=== PATIENT | female | born 1975 | race Caucasian/White ===

== ENCOUNTER → 2023-10-21 13:01 | Outpatient (REF) | payer BC, SELFPAY | LOC: WDC 13:01 | PROVIDERS: ATTENDING PHYSICIAN Nurse Practitioner Family; FAMILY PHYSICIAN Physician Assistant Medical | DX: Z12.31 Encounter for screening mammogram for malignant neoplasm of breast (principal) | CPT/HCPCS: 77063; 77067 ==

== ENCOUNTER → 2023-11-04 08:26 | Outpatient (REF) | payer BC, SELFPAY ==
[2023-11-04 08:58] LABS: % Basophils 0.6 % (0-2); % Eosinophils 3.6 % (0-6); % Immature Granulocytes 0.6 % (0-0.5); % Lymphocytes 33.1 % (20.5-51.1); % Neutrophils 56.1 % (42.2-75.2); Absolute Basophils 0.1 10^3/uL (0-0.2); Absolute Eosinophils 0.3 10^3/uL (0-0.7); Absolute Immature Granulocytes 0.1 10^3/uL (0-0.05); Absolute Lymphocytes 2.6 10^3/uL (1.2-3.4); Absolute Monocytes 0.5 10^3/uL (0.1-0.6); Absolute Neutrophils 4.4 10^3/uL (1.4-6.5); Hematocrit 37.3 % (37.0-47.0); Hemoglobin 12.8 g/dL (12.0-16.0); Mean Corp Hgb Conc. 34.3 g/dL (33.0-37.0); Mean Corpuscular Hgb 31.2 pg (27.0-31.0); Mean Platelet Volume 9.1 fL (7.4-10.4); Nucleated Red Blood Cells % 0 %; Platelet Count 251 10^3/uL (130-400); Red Cell Dist. Width 12.1 % (11.5-14.5); White Blood Cell Count 7.8 10^3/uL (4.8-10.8)
[2023-11-04 09:19] LABS: ALT (SGPT) 18 U/L (0-35); AST (SGOT) 22 U/L (14-36); Albumin 4.2 g/dl (3.5-5.0); Alkaline Phosphatase 53 U/L (38-126); Blood Urea Nitrogen 13 mg/dl (7-17); Calcium 8.9 mg/dl (8.4-10.2); Carbon Dioxide 25 mmol/L (22-30); Chloride 104 mmol/L (98-107); Glucose 78 mg/dl (70-99); HDL Cholesterol 73 mg/dl; LDL Cholesterol, Calculated 87 mg/dl; Potassium 3.8 mmol/L (3.5-5.1); Sodium 135 mmol/L (135-145); Total Bilirubin 0.8 mg/dl (0.2-1.3); Total Cholesterol 177 mg/dl (50-199); Total Protein 6.7 g/dl (6.3-8.2); Triglyceride 86 mg/dl (10-149); Very Low Density Lipoprotein 17 mg/dl (0-30); eGFR > 60.00
== END ==
LOC: REG 08:26
PROVIDERS: ATTENDING PHYSICIAN Physician Assistant Medical
DX: Z00.00 Encounter for general adult medical examination without abnormal findings (principal)
CPT/HCPCS: 36415; 80053; 80061; 85025

== ENCOUNTER → 2024-04-09 15:01 | Outpatient (REF) | payer BC, SELFPAY | LOC: MRI 3T 15:01 | PROVIDERS: ATTENDING PHYSICIAN Physician Assistant Surgical; FAMILY PHYSICIAN Physician Assistant Medical | DX: M25.561 Pain in right knee (principal) | CPT/HCPCS: 73721 ==

== ENCOUNTER → 2024-09-23 09:52 | Outpatient (REF) | payer BC, SELFPAY ==
[2024-09-23 11:13] LABS: Free T4 1.04 ng/dl (0.78-2.19)
[2024-09-23 11:27] LABS: TSH 1.55 uIU/ml (0.47-4.68)
== END ==
LOC: REG 09:52
PROVIDERS: ATTENDING PHYSICIAN Internal Medicine Endocrinology, Diabetes & Metabolism; FAMILY PHYSICIAN Physician Assistant Medical
DX: E04.2 Nontoxic multinodular goiter (principal)
CPT/HCPCS: 36415; 84439; 84443

== ENCOUNTER → 2024-10-16 12:06 | Outpatient (REF) | payer BC, SELFPAY | LOC: RAD 12:06 | PROVIDERS: ATTENDING PHYSICIAN Physician Assistant Surgical; FAMILY PHYSICIAN Physician Assistant Medical | DX: M25.562 Pain in left knee (principal) | CPT/HCPCS: 73564 ==

== ENCOUNTER → 2024-10-24 10:46 | Outpatient (REF) | payer BC, SELFPAY | LOC: PAVMRI 10:46 | PROVIDERS: ATTENDING PHYSICIAN Physician Assistant Surgical; FAMILY PHYSICIAN Physician Assistant Medical | DX: M25.562 Pain in left knee (principal) | CPT/HCPCS: 73721 ==

== ENCOUNTER → 2024-11-03 13:56 | Outpatient (REF) | payer BC, SELFPAY | LOC: WDC 13:56 | PROVIDERS: ATTENDING PHYSICIAN Obstetrics & Gynecology; FAMILY PHYSICIAN Physician Assistant Medical | DX: Z12.31 Encounter for screening mammogram for malignant neoplasm of breast (principal) | CPT/HCPCS: 77063; 77067 ==

== ENCOUNTER → 2024-11-06 10:24 | Outpatient (REF) | payer BC, SELFPAY | LOC: WDC 10:24 | PROVIDERS: ATTENDING PHYSICIAN Obstetrics & Gynecology; FAMILY PHYSICIAN Physician Assistant Medical | DX: R92.8 Other abnormal and inconclusive findings on diagnostic imaging of breast (principal) | CPT/HCPCS: 76642 ==

== ENCOUNTER → 2024-11-13 12:22 | Outpatient (REF) | payer BC, SELFPAY | LOC: RAD 12:22 | PROVIDERS: ATTENDING PHYSICIAN Physician Assistant Surgical; FAMILY PHYSICIAN Physician Assistant Medical | DX: M25.561 Pain in right knee (principal) | CPT/HCPCS: 73564 ==

== ENCOUNTER → 2024-11-17 12:51 | Outpatient (REF) | payer BC, SELFPAY | LOC: RAD 12:51 | PROVIDERS: ATTENDING PHYSICIAN Internal Medicine Endocrinology, Diabetes & Metabolism; FAMILY PHYSICIAN Physician Assistant Medical | DX: E04.2 Nontoxic multinodular goiter (principal) | CPT/HCPCS: 76536 ==

== ENCOUNTER → 2024-11-24 08:34 | Outpatient (REF) | payer BC, SELFPAY ==
[2024-11-24 09:53] LABS: % Basophils 0.8 % (0-2); % Immature Granulocytes 0.3 % (0-0.5); % Lymphocytes 29.5 % (20.5-51.1); % Monocytes 6.1 % (1.7-9.3); % Neutrophils 60.3 % (42.2-75.2); Absolute Basophils 0.1 10^3/uL (0-0.2); Absolute Eosinophils 0.2 10^3/uL (0-0.7); Absolute Lymphocytes 2.3 10^3/uL (1.2-3.4); Absolute Monocytes 0.5 10^3/uL (0.1-0.6); Absolute Neutrophils 4.7 10^3/uL (1.4-6.5); Hematocrit 38.5 % (37.0-47.0); Hemoglobin 13.2 g/dL (12.0-16.0); Mean Corp Hgb Conc. 34.3 g/dL (33.0-37.0); Mean Corpuscular Hgb 31.4 pg (27.0-31.0); Mean Corpuscular Volume 91.7 fL (81.0-99.0); Mean Platelet Volume 9.8 fL (7.4-10.4); Nucleated Red Blood Cells % 0 %; Platelet Count 331 10^3/uL (130-400); Red Cell Dist. Width 11.7 % (11.5-14.5); White Blood Cell Count 7.7 10^3/uL (4.8-10.8)
[2024-11-24 13:17] LABS: ALT (SGPT) 19 U/L (0-35); AST (SGOT) 21 U/L (14-36); Albumin 4.6 g/dl (3.5-5.0); Alkaline Phosphatase 54 U/L (38-126); Blood Urea Nitrogen 12 mg/dl (7-17); Carbon Dioxide 25 mmol/L (22-30); Chloride 105 mmol/L (98-107); Glucose 86 mg/dl (70-99); HDL Cholesterol 68 mg/dl; LDL Cholesterol, Calculated 107 mg/dl; Potassium 4.5 mmol/L (3.5-5.1); Sodium 141 mmol/L (135-145); Total Bilirubin 0.8 mg/dl (0.2-1.3); Total Cholesterol 189 mg/dl (50-199); Total Protein 6.9 g/dl (6.3-8.2); Triglyceride 73 mg/dl (10-149); Very Low Density Lipoprotein 14 mg/dl (0-30); eGFR > 60.00
== END ==
LOC: REG 08:34
PROVIDERS: ATTENDING PHYSICIAN Physician Assistant Medical
DX: Z00.00 Encounter for general adult medical examination without abnormal findings (principal)
CPT/HCPCS: 36415; 80053; 80061; 85025

== ENCOUNTER → 2025-06-09 10:22 | Outpatient (REF) | payer BC, SELFPAY ==
[2025-06-10 18:43] LABS: Urine Character Cloudy (Clear)
== END ==
LOC: CLAB 10:22
PROVIDERS: ATTENDING PHYSICIAN Obstetrics & Gynecology
DX: N39.0 Urinary tract infection, site not specified (principal)
CPT/HCPCS: 81003; 81015; 87086

== ENCOUNTER 2025-06-23 10:49 | Outpatient (RCR) | payer BC, SELFPAY | END 2025-06-23 23:59 | disposition home or self-care (01) | LOC: RPT 10:49 | PROVIDERS: ATTENDING PHYSICIAN Obstetrics & Gynecology; FAMILY PHYSICIAN Physician Assistant Medical | DX: N81.10 Cystocele, unspecified (principal); N81.6 Rectocele; N39.3 Stress incontinence (female) (male); N95.8 Other specified menopausal and perimenopausal disorders; Z73.6 Limitation of activities due to disability; M62.89 Other specified disorders of muscle | CPT/HCPCS: 97163; 97530 ==

== ENCOUNTER → 2025-06-29 11:25 | Outpatient (REF) | payer BC, SELFPAY ==
[2025-06-29 13:33] LABS: FSH 5.5 mIU/ml
== END ==
LOC: REG 11:25
PROVIDERS: ATTENDING PHYSICIAN Obstetrics & Gynecology; FAMILY PHYSICIAN Physician Assistant Medical; OTHER PHYSICIAN Obstetrics & Gynecology
DX: N95.1 Menopausal and female climacteric states (principal)
CPT/HCPCS: 36415; 83001; 83002

== ENCOUNTER 2025-08-11 07:18 | Outpatient (RCR) | payer BC, SELFPAY | END 2025-08-11 23:59 | disposition home or self-care (01) | LOC: RPT 07:18 | PROVIDERS: ATTENDING PHYSICIAN Obstetrics & Gynecology; FAMILY PHYSICIAN Physician Assistant Medical | DX: N81.10 Cystocele, unspecified (principal); N81.6 Rectocele; N39.3 Stress incontinence (female) (male); N95.8 Other specified menopausal and perimenopausal disorders; Z73.6 Limitation of activities due to disability; M62.89 Other specified disorders of muscle | CPT/HCPCS: 97014; 97110; 97112; 97140; 97530 ==